=== PATIENT | female | born 1960 | race Caucasian/White ===

== ENCOUNTER 2018-04-12 10:01 | Inpatient (IN) | payer OTHER, BC ==
[2018-04-12] MEDS ORDERED: SOD CHLORIDE 0.9% 1,000 ML IV (11:00)
[2018-04-12 11:28] LABS: ADD MAN DIFF? NO
[2018-04-12 11:31] LABS: WHITE BLOOD COUNT 6.9 10^3/ul (4.8-10.8)
[2018-04-12 11:31] LABS: BASOPHIL # 0.1 10^3/ul (0.0-0.1); BASOPHILS % 0.7 % (0.0-2.0); EOSINOPHILS # 0.1 10^3/ul (0.0-0.5); EOSINOPHILS % 1.6 % (0.0-7.0); HEMATOCRIT 38.3 % (37.0-47.0); HEMOGLOBIN 12.6 g/dl (12.0-16.0); LYMPHOCYTES # 2.7 10^3/ul (0.8-2.9); LYMPHOCYTES % 38.9 % (15.0-51.0); MEAN CORPUSCULAR HEMOGLOBIN 29.4 pg (29.0-33.0); MEAN CORPUSCULAR HGB CONC 32.9 g/dl (32.0-37.0); MEAN CORPUSCULAR VOLUME 89.5 fl (82.0-101.0); MEAN PLATELET VOLUME 10.5 fl (7.4-10.4); MONOCYTE # 0.6 10^3/ul (0.3-0.9); MONOCYTES % 8.3 % (0.0-11.0); NEUTROPHIL # 3.4 10^3/ul (1.6-7.5); NEUTROPHILS % 49.9 % (39.0-77.0); PLATELET COUNT 172 10^3/UL (140-415); RED BLOOD COUNT 4.28 10^6/ul (4.20-5.40); RED CELL DISTRIBUTION WIDTH 13.6 % (11.5-14.5)
[2018-04-12 11:49] LABS: INR 0.87; PROTIME 11.9 Sec (11.9-14.9); PT RATIO 0.9
[2018-04-12 11:50] LABS: PARTIAL THROMBOPLASTIN TIME 30.1 Sec (23.0-35.0)
[2018-04-12 11:57] LABS: ALANINE AMINOTRANSFERASE 26 IU/L (13-69); ALBUMIN 4.4 g/dl (3.3-4.9); ALBUMIN/GLOBULIN RATIO 1.91; ALKALINE PHOSPHATASE 61 IU/L (42-121); ANION GAP 10 (5-13); ASPARTATE AMINO TRANSFERASE 26 IU/L (15-46); BILIRUBIN,INDIRECT 0.3 mg/dl (0-1.1); BILIRUBIN,TOTAL 0.3 mg/dl (0.2-1.3); BLOOD UREA NITROGEN 20 mg/dl (7-20); CALCIUM 9.4 mg/dl (8.4-10.2); CARBON DIOXIDE 27 mmol/L (21-31); CHLORIDE 105 mmol/L (97-110); CREATININE 0.74 mg/dl (0.44-1.00); Estimated GFR > 60 mL/min (>60); GLUCOSE 79 mg/dl (70-220); POTASSIUM 4.2 mmol/L (3.5-5.1); SODIUM 142 mmol/L (135-144); TOTAL PROTEIN 6.7 g/dl (6.1-8.1)
[2018-04-12] MEDS ORDERED: METOCLOPRAMIDE 10 MG INJ (15:26)
[2018-04-12] MEDS ORDERED: MIDAZOLAM 1 MG/ML 2 ML INJ (15:26)
[2018-04-12] MEDS ORDERED: HYDROmorphONE 1 MG/5 ML IV SYRINGE IV ×2 (15:30)
[2018-04-12] MEDS ORDERED: OXYCODONE/ACETAMINOPHEN (5/325) TAB PO ×2 (15:30)
[2018-04-12] MEDS ORDERED: DIPHENHYDRAMINE 50 MG INJ IV (15:30)
[2018-04-12] MEDS ORDERED: CEFAZOLIN 1 GM INJ (15:32)
[2018-04-12] MEDS ORDERED: ONDANSETRON 4 MG INJ (15:32)
[2018-04-12] MEDS ORDERED: PROPOFOL 20 ML (15:32)
[2018-04-12] MEDS ORDERED: FENTAnyl 50 MCG/ML VIAL (15:32)
[2018-04-12] MEDS ORDERED: EPHEDrine SULFATE 50 MG/5 ML SYG (16:00)
[2018-04-12] MEDS: D5W-0.45 NACL + KCL 20 MEQ 1,000 ML IV ×3 (16:47→21:53)
[2018-04-12] MEDS ORDERED: ACETAMINOPHEN 1000MG/100ML IV 100 ML IVPB (17:00)
[2018-04-12] MEDS: HYDROmorphONE 1 MG/5 ML IV SYRINGE IV ×2 (17:17→17:34)
[2018-04-12] MEDS: ONDANSETRON 4 MG INJ IV (17:17)
[2018-04-12] MEDS: CEFAZOLIN 2 GM/50 ML (PMX) 50 ML IVPB (17:20)
[2018-04-12] MEDS: MEPERIDINE 25 MG INJ IV (17:43)
[2018-04-12] MEDS: morphine 2 MG INJ IV ×3 (18:46→21:23)
[2018-04-12] MEDS ORDERED: D5W-0.45 NACL + KCL 20 MEQ 1,000 ML IV (21:30)
[2018-04-12] MEDS: morphine 1 MG/ML 30 ML (PCA) IV (23:21)
[2018-04-13] MEDS: D5W-0.45 NACL + KCL 20 MEQ 1,000 ML IV ×4 (00:44→21:32)
[2018-04-13] MEDS ORDERED: ACETAMINOPHEN 325 MG TAB PO (02:30)
[2018-04-13] MEDS: morphine 1 MG/ML 30 ML (PCA) IV ×2 (04:34→10:56)
[2018-04-13] MEDS: ONDANSETRON 4 MG INJ IV (08:08)
[2018-04-13] MEDS ORDERED: NALOXONE (0.4 MG/ML) INJ (12:57)
[2018-04-13] MEDS ORDERED: DOCUSATE SODIUM 100 MG CAP PO (13:00)
[2018-04-13] MEDS ORDERED: AL HYDROX/MG HYDROX/SIMETH 30 ML CUP PO (13:00)
[2018-04-13] MEDS: KETOROLAC 15 MG INJ IV ×2 (13:02→18:41)
[2018-04-13] MEDS: NALOXONE (0.4 MG/ML) INJ IV (13:04)
[2018-04-13] MEDS ORDERED: HYDROCODONE/APAP (5/325) TAB PO (13:30)
[2018-04-13] MEDS: ACETAMINOPHEN 1000MG/100ML IV 100 ML IVPB ×2 (14:00→19:52)
[2018-04-13] MEDS: HYDROCODONE/APAP (5/325) TAB PO (19:34)
[2018-04-14] MEDS: KETOROLAC 15 MG INJ IV ×2 (01:07→06:00)
[2018-04-14] MEDS: ACETAMINOPHEN 1000MG/100ML IV 100 ML IVPB (01:47)
[2018-04-14] MEDS: traMADol 50 MG TAB PO (03:16)
[2018-04-14] MEDS: PANTOPRAZOLE (EC) 40 MG TAB PO (06:00)
[2018-04-14] MEDS: D5W-0.45 NACL + KCL 20 MEQ 1,000 ML IV (06:01)
[2018-04-14 06:11] LABS: ADD MAN DIFF? NO
[2018-04-14 06:12] LABS: WHITE BLOOD COUNT 5.9 10^3/ul (4.8-10.8)
[2018-04-14 06:12] LABS: BASOPHILS % 0.2 % (0.0-2.0); EOSINOPHILS # 0.1 10^3/ul (0.0-0.5); EOSINOPHILS % 1.7 % (0.0-7.0); HEMOGLOBIN 9.3 g/dl (12.0-16.0); LYMPHOCYTES # 2.6 10^3/ul (0.8-2.9); LYMPHOCYTES % 43.3 % (15.0-51.0); MEAN CORPUSCULAR HEMOGLOBIN 29.4 pg (29.0-33.0); MEAN CORPUSCULAR HGB CONC 32.1 g/dl (32.0-37.0); MEAN CORPUSCULAR VOLUME 91.8 fl (82.0-101.0); MEAN PLATELET VOLUME 10.6 fl (7.4-10.4); MONOCYTE # 0.6 10^3/ul (0.3-0.9); MONOCYTES % 10.9 % (0.0-11.0); NEUTROPHIL # 2.6 10^3/ul (1.6-7.5); NEUTROPHILS % 43.6 % (39.0-77.0); RED BLOOD COUNT 3.16 10^6/ul (4.20-5.40); RED CELL DISTRIBUTION WIDTH 13.6 % (11.5-14.5)
[2018-04-14 06:29] LABS: PLATELET COUNT 130 10^3/UL (140-415); POSITIVE DIFF @See below
[2018-04-14] MEDS: HYDROCODONE/APAP (5/325) TAB PO (08:10)
[2018-04-14] MEDS ORDERED: ATENOLOL 25 MG TAB PO (09:00)
[2018-04-14] MEDS ORDERED: FLUOXETINE 20 MG CAP PO (09:00)
[2018-04-16] MEDS ORDERED: IBUPROFEN 200 MG TAB PO (13:00)
== END 2018-04-14 08:20 | disposition home or self-care (01) | DRG 581 ==
LOC: REC 10:01 → 2NE 18:20
PROC: 0HTT0ZZ Resection of Right Breast, Open Approach (ICD-10-PCS; principal; 2018-04-12 13:00)
PROC: 07B50ZX Excision of Right Axillary Lymphatic, Open Approach, Diagnostic (ICD-10-PCS; 2018-04-12 13:00)
DX: D05.91 Unspecified type of carcinoma in situ of right breast (principal); I10 Essential (primary) hypertension
CPT/HCPCS: 71045; 80053; 84703; 85025; 85610; 85730; 88307; 93005

== ENCOUNTER 2018-04-14 12:34 | Emergency (ER) | payer OTHER | END 2018-04-14 14:13 | disposition home or self-care (01) | LOC: E/R 14:13 | DX: L76.22 Postprocedural hemorrhage of skin and subcutaneous tissue following other procedure (principal); Z85.3 Personal history of malignant neoplasm of breast | CPT/HCPCS: 99282 ==